=== PATIENT | male | born 1995 | race Caucasian/White ===

== ENCOUNTER 2017-06-12 14:24 | Emergency (ER) | payer OTHER ==
[~2017-06-12] VITALS: Ht 170.2 cm; Wt 65.7 kg
[2017-06-12 14:25] VITALS: BP 120/65
== END 2017-06-12 15:09 | disposition home or self-care (01) ==
LOC: ED 15:03
DX: L02.01 Cutaneous abscess of face (principal)
CPT/HCPCS: 99283